=== PATIENT | male | born 1990 | race Two or more races ===

== ENCOUNTER → 2022-08-21 | Outpatient (CLI) | payer OTHER ==
[~2022-08-21] MED LIST: CRUTCH USE; HYDACE5 PO; INCARCERATION; SERT25
[2022-08-21 09:25] LABS: BASOPHILS ABSOLUTE AUTO 0.03 K/mm3 (0.00-0.23); BASOPHILS PERCENT AUTO 0 % (0-2); EOSINOPHILS PERCENT AUTO 1 % (0-6); Hematocrit 46.5 % (37.0-53.0); IMMATURE GRAN ABSOLUTE AUTO 0.03 K/mm3 (0.00-0.10); IMMATURE GRAN PERCENT AUTO 0 % (0-1); LYMPHOCYTES PERCENT AUTO 26 % (21-46); MONOCYTES ABSOLUTE AUTO 0.68 K/mm3 (0.16-1.47); MONOCYTES PERCENT AUTO 9 % (4-13); Mean Corpuscular HGB 30.4 pg (26.0-34.0); Mean Corpuscular HGB Conc 34.4 g/dL (31.5-36.5); Mean Corpuscular Volume 88 fL (80-100); Mean Platelet Volume 11.3 fL (9.1-12.4); NEUTROPHILS ABSOLUTE AUTO 4.77 K/mm3 (1.96-9.15); NEUTROPHILS PERCENT AUTO 63 % (41-73); Platelet Count 227 K/mm3 (150-400); RDW Coefficient Variation 11.9 % (11.7-14.2); RDW Standard Deviation 38.5 fL (35.1-46.3); Red Blood Cell Count 5.26 M/mm3 (4.30-5.90); White Blood Cell Count 7.61 K/mm3 (4.00-11.30)
[2022-08-21 09:39] LABS: Albumin/Globulin Ratio 1.1 (0.8-1.8); Bilirubin, Total 1.5 mg/dL (0.1-1.0); Bun/Creatinine Ratio 12.2 (12.0-20.0); Calcium, Blood 9.2 mg/dL (8.5-10.1); Creatinine, Blood 0.9 mg/dL (0.60-1.20); Globulin, Blood 3.7 g/dL (2.2-4.0); Potassium, Blood 4.4 mmol/L (3.5-5.5); Total Protein, Blood 7.7 g/dL (6.4-8.2)
== END | disposition home or self-care (01) ==
LOC: LAB SHORT 09:20 → LAB 09:20
PROVIDERS: Physician Assistant
DX: R10.9 Unspecified abdominal pain (principal)
CPT/HCPCS: 80053; 82150; 83690; 85025

== ENCOUNTER 2024-04-01 22:38 | Observation (INO) | payer BC, OTHER ==
[~2024-04-01] VITALS: Ht 190.5 cm; Wt 95.2 kg
[2024-04-01 23:28] VITALS: BP 160/104
[2024-04-02 00:06] LABS: BASOPHILS ABSOLUTE AUTO 0.06 K/mm3 (0.00-0.23); BASOPHILS PERCENT AUTO 1 % (0-2); EOSINOPHILS ABSOLUTE AUTO 0.08 K/mm3 (0.00-0.68); EOSINOPHILS PERCENT AUTO 1 % (0-6); Hematocrit 50.6 % (37.0-53.0); Hemoglobin 17.6 g/dL (13.5-17.5); IMMATURE GRAN ABSOLUTE AUTO 0.05 K/mm3 (0.00-0.10); IMMATURE GRAN PERCENT AUTO 0 % (0-1); LYMPHOCYTES ABSOLUTE AUTO 3.42 K/mm3 (0.84-5.20); LYMPHOCYTES PERCENT AUTO 29 % (21-46); MONOCYTES ABSOLUTE AUTO 0.89 K/mm3 (0.16-1.47); MONOCYTES PERCENT AUTO 8 % (4-13); Mean Corpuscular HGB 31.3 pg (26.0-34.0); Mean Corpuscular HGB Conc 34.8 g/dL (31.5-36.5); Mean Corpuscular Volume 90 fL (80-100); Mean Platelet Volume 10.5 fL (9.1-12.4); NEUTROPHILS ABSOLUTE AUTO 7.25 K/mm3 (1.96-9.15); NEUTROPHILS PERCENT AUTO 62 % (41-73); Platelet Count 323 K/mm3 (150-400); RDW Coefficient Variation 12.1 % (11.7-14.2); RDW Standard Deviation 39.9 fL (35.1-46.3); Red Blood Cell Count 5.62 M/mm3 (4.30-5.90); White Blood Cell Count 11.75 K/mm3 (4.00-11.30)
[2024-04-02 00:27] LABS: Salicylate <1.7 mg/dL (2.8-20.0)
[2024-04-02 00:30] LABS: Acetaminophen, Random <2.0 ug/mL (10.0-30.0); Alanine Aminotransfer (ALT/SGP 110 U/L (12-78); Albumin, Blood 3.9 g/dL (3.4-5.0); Albumin/Globulin Ratio 0.8 (0.8-1.8); Alk Phos 82 U/L (50-136); Anion Gap 12 mmol/L (3-11); Aspartate Aminotrans (AST/SGOT 72 U/L (12-37); Bilirubin, Total 1.2 mg/dL (0.1-1.0); Blood Urea Nitrogen 4 mg/dL (8-24); CO2, Blood 26 mmol/L (21-32); Calcium, Blood 8.9 mg/dL (8.5-10.1); Chloride, Blood 103 mmol/L (98-108); Globulin, Blood 4.6 g/dL (2.2-4.0); Glomerular Filtration Rate 121 (60-); Glucose, Blood 135 mg/dL (70-99); Potassium, Blood 3.5 mmol/L (3.5-5.5); Sodium, Blood 137 mmol/L (136-145); Total Protein, Blood 8.5 g/dL (6.4-8.2)
[2024-04-02 00:47] LABS: Source, Urine Clean Catch
[2024-04-02 00:49] LABS: Ethanol (Alcohol), Blood, Med 323 mg/dL
[2024-04-02 01:03] LABS: Bilirubin, Urine Neg (Neg); Blood, Urine Neg (Neg); Glucose Qualitative, Urine Neg (Neg); Ketones, Urine Neg (Neg); Leukocyte Esterase, Urine Neg (Neg); Nitrite, Urine Neg (Neg); Protein, Urine Neg (Neg); Urobilinogen, Urine NORM (Normal); pH, Urine 6.5 (5.0-8.0)
[2024-04-02 01:05] LABS: Appearance, Urine Clear (Clear); Color, Urine Yellow (P-Yellow)
[2024-04-02 01:18] LABS: U Amphetamine Screen Not Detected; U Barbituate Screen Not Detected; U Benzodiazapine Screen Not Detected; U Buprenorphine Screen Not Detected; U Cannabinoids Screen Not Detected; U Cocaine Screen Not Detected; U Methadone Screen Not Detected; U Methamphetamine Screen Not Detected; U Opiates Screen Not Detected; U Oxycodone Screen Not Detected; U Phencyclidine Screen Not Detected
== END 2024-04-02 10:37 | disposition home or self-care (01) ==
LOC: ER 22:38 → EOR 22:39
PROVIDERS: ADMIT Emergency Medicine
DX: F43.21 Adjustment disorder with depressed mood (principal); R45.851 Suicidal ideations; F10.129 Alcohol abuse with intoxication, unspecified; F32.A Depression, unspecified; F17.200 Nicotine dependence, unspecified, uncomplicated
CPT/HCPCS: 36415; 80053; 80320; 81003; 84484; 85025; 99285-25; G0378; G0480

== ENCOUNTER 2024-12-01 21:57 | Observation (INO) | payer OTHER ==
[~2024-12-01] VITALS: Ht 185.4 cm; Wt 99.8 kg
[2024-12-01] MEDS ORDERED: Naloxone HCl 0.4MG / ML 1ML Vial IV ONE (22:00)
[2024-12-01 22:13] LABS: BASOPHILS ABSOLUTE AUTO 0.04 K/mm3 (0.00-0.23); BASOPHILS PERCENT AUTO 0 % (0-2); EOSINOPHILS ABSOLUTE AUTO 0.01 K/mm3 (0.00-0.68); EOSINOPHILS PERCENT AUTO 0 % (0-6); Hematocrit 49.4 % (37.0-53.0); Hemoglobin 16.9 g/dL (13.5-17.5); IMMATURE GRAN ABSOLUTE AUTO 0.04 K/mm3 (0.00-0.10); IMMATURE GRAN PERCENT AUTO 0 % (0-1); LYMPHOCYTES ABSOLUTE AUTO 3.34 K/mm3 (0.84-5.20); LYMPHOCYTES PERCENT AUTO 24 % (21-46); MONOCYTES ABSOLUTE AUTO 0.83 K/mm3 (0.16-1.47); MONOCYTES PERCENT AUTO 6 % (4-13); Mean Corpuscular HGB Conc 34.2 g/dL (31.5-36.5); Mean Corpuscular Volume 87 fL (80-100); NEUTROPHILS ABSOLUTE AUTO 9.95 K/mm3 (1.96-9.15); NEUTROPHILS PERCENT AUTO 70 % (41-73); NRBC ABSOLUTE 0.00 K/mm3 (0.00-0.02); NRBC Auto 0.0 /100 WBC (0.0-0.2); Platelet Count 285 K/mm3 (150-400); RDW Coefficient Variation 12.5 % (11.7-14.2); RDW Standard Deviation 39.2 fL (35.1-46.3)
[2024-12-01 22:38] LABS: Ethanol (Alcohol), Blood, Med 300 mg/dL; Salicylate <1.7 mg/dL (2.8-20.0); Thyroid Stimulating Hormone 2.020 uIU/mL (0.360-4.800)
[2024-12-01 22:40] LABS: Acetaminophen, Random <2.0 ug/mL (10.0-30.0); Alanine Aminotransfer (ALT/SGP 64 U/L (12-78); Albumin, Blood 3.6 g/dL (3.4-5.0); Albumin/Globulin Ratio 0.8 (0.8-1.8); Anion Gap 10 mmol/L (3-11); Aspartate Aminotrans (AST/SGOT 35 U/L (12-37); Bilirubin, Total 1.4 mg/dL (0.1-1.0); Blood Urea Nitrogen 7 mg/dL (8-24); CO2, Blood 26 mmol/L (21-32); Calcium, Blood 8.2 mg/dL (8.5-10.1); Chloride, Blood 109 mmol/L (98-108); Creatinine, Blood 0.90 mg/dL (0.60-1.20); Globulin, Blood 4.3 g/dL (2.2-4.0); Glucose, Blood 129 mg/dL (70-99); Potassium, Blood 3.6 mmol/L (3.5-5.5); Sodium, Blood 141 mmol/L (136-145); Total Protein, Blood 7.9 g/dL (6.4-8.2)
[2024-12-01 23:49] LABS: U Amphetamine Screen Not Detected; U Barbituate Screen Not Detected; U Benzodiazapine Screen Not Detected; U Cocaine Screen Not Detected; U Methadone Screen Not Detected; U Methamphetamine Screen Not Detected
[2024-12-01 23:50] LABS: U Buprenorphine Screen Not Detected; U Cannabinoids Screen Not Detected; U Opiates Screen Not Detected; U Oxycodone Screen Not Detected; U Phencyclidine Screen Not Detected
[2024-12-02] MEDS ORDERED: NS 1,000 ML IV ONE (00:51)
[2024-12-02] MEDS ORDERED: NS 1,000 ML IV SCH (00:55)
[2024-12-02 01:06] LABS: Magnesium, Blood 2.1 mg/dL (1.6-2.4)
[2024-12-02 04:43] VITALS: BP 129/76
[2024-12-02] MEDS ORDERED: Ondansetron 8 MG SoluTab SL ONE (10:25)
== END 2024-12-02 16:27 | disposition other institution (70) ==
LOC: ER 21:57 → EOR 21:58
PROVIDERS: ADMIT Student in an Organized Health Care Education/Training Program
DX: T43.212A Poisoning by selective serotonin and norepinephrine reuptake inhibitors, intentional self-harm, initial encounter (principal); R40.4 Transient alteration of awareness; F32.A Depression, unspecified; F10.90 Alcohol use, unspecified, uncomplicated; F17.200 Nicotine dependence, unspecified, uncomplicated
CPT/HCPCS: 80053; 80320; 83735; 84439; 84443; 85025; 93005; 93010; 96374; 96375; 99285-25; A9270; G0378; G0480; J3480; J7030; J7050

== ENCOUNTER 2024-12-02 14:10 | Inpatient (IN) | payer OTHER ==
[~2024-12-02] VITALS: Ht 193 cm; Wt 95.4 kg
[2024-12-02] MEDS ORDERED: Haloperidol Lactate Inj. 5 MG/ML Injection IM PRN (15:50)
[2024-12-02] MEDS ORDERED: Aluminum Hydroxide 320MG/5ML 473 ML PO PRN (15:50)
[2024-12-02] MEDS ORDERED: Ondansetron 4 MG SoluTab MM PRN (15:55)
[2024-12-02] MEDS ORDERED: DiphenhydrAMINE HCl 50 MG/ML 1ML Vial IM PRN (15:55)
[2024-12-02] MEDS ORDERED: Polyethylene Glycol 3350 17 gm PO PRN (16:00)
[2024-12-02 16:40] VITALS: BP 152/113
[2024-12-02 17:04] VITALS: BP 152/113
--- NOTE | 2024-12-02 18:19 | NUR ---
ADMISSION NOTE/SHIFT SUMMARY PT ARRIVED TO [facility] FROM [facility] ED AT APPROX 1630. HE IS HER VOLUNTARILY AFTER DRINKING ALCOHOL AND TAKING "A MOUTHFUL OF TRAZODONE." HE REPORTED THIS WAS AN IMPULSIVE DECISION HE MADE AFTER EXPERIENCING A STRESSFUL BREAK UP WITH HIS FIANCE AND LEARNING OTHER TRIGGERING NEWS RELATED TO THEIR RELATIONSHIP. PT DENIES SI/HI AND AVTH AT THIS TIME, BUT HE DOES HAVE A HISTORY OF SUICIDAL BEHAVIOR x1, ALCOHOL ABUSE, AND MAJOR DEPRESSIVE DISORDER. PT IS VERY GOAL ORIENTED AND IS MOTIVATED TO STOP DRINKING. HE IS ASKING FOR RESOURCES TO GO TO INPATIENT TREATMENT FOR ALCOHOL ABUSE. HE REPORTS HAVING A GOOD SUPPORT SYSTEM WITH HIS FAMILY. PT WAS ORIENTED TO THE UNIT. HIS ADMISSION WAS COMPLETED AND HE IS CURRENTLY SITTING IN THE GROUP ROOM EATING DINNER. HE DENIES ANY NEEDS AT THIS TIME.
--- NOTE | 2024-12-02 18:50 | NUR ---
Patients sister Neeru called the [facility] and stated that the patient would like to go to [facility] upon discharge. She states he was supposed to have an intake or phone interview with them today, but then ended up here instead. She states that she is working to hopefully make that possible for post discharge. The patient is speaking with her on the phone at this time.
[2024-12-02 20:53] VITALS: BP 158/102
--- NOTE | 2024-12-03 04:21 | NUR ---
SHIFT SUMMARY PATIENT UP IN MILIEU, WATCHING TV WITH PEERS. DENIES SI, HI, OR AVH. CIWA 1 DUE TO SLIGHT ANXIETY, PATIENT VERBALIZED THAT HE HAS NEVER HAD ALCOHOL WITHDRAWALS IN THE PAST, AGREES TO ASK STAFF FOR ASSISTANCE IF FEELING OF WITHDRAWALS START, PLAN TO CONTINUE TO MONITOR CIWA Q4HR. WHILE SLEEPING CIWA 0. PATIENT VERBALIZED NAUSEA IS NOW GONE AND HE WAS ABLE TO EAT DINNER AND SNACK WITHOUT RETURN OF N/V. PATIENT VERBALIZED THAT HE IS HOPING TO BE ABLE TO GO HOME BY SUNDAY DUE TO HIS S/O IS BEING INDUCED TO GIVE THAT DAY. PATIENT ALSO VERBALIZED THAT HIS SISTER IS HELPING HIM TO GET INTO [facility] [place] FOR IN PATIENT REHAB. PATIENT APPEARS TO BE SLEEPING WELL T/O NIGHT RESP EVEN AND UNLABORED WITH SOME SNORING. CONTINUE TO MONITOR Q15MIN
[2024-12-03 08:48] LABS: CHOL/HDL RATIO 1.8; Cholesterol 154 mg/dL (50-200); HDL Cholesterol 85 mg/dL (>39); LDL/HDL RATIO 0.6; Low Density Lipoprotein Chol 50 mg/dL (0-110); Triglycerides 94 mg/dL (30-140); Very Low Density Lipoprot Chol 19 mg/dL (6-28)
[2024-12-03] MEDS ORDERED: Multivitamins 1 Tab PO SCH (09:00)
[2024-12-03] MEDS ORDERED: Folic Acid 1 MG TAB PO SCH (09:00)
[2024-12-03 09:07] VITALS: BP 152/95
--- NOTE | 2024-12-03 17:19 | NUR ---
SHIFT SUMMARY The patient is alert and orientated. He has clear speech and a disheveled (althought clean) appearence He denies any thought of wanting to hurt or kill himself. He is not experiencing hallucinations. His thought process appears to be logical and based in reality, although his past relationship is on his mind. He is on CIWA protocal and has scored low each assessment. He did have GI upset this am, and TUMS were effective to alleviate this. He had mild anxiety. Vistaril was given and was effective. He has participated in groups and has been polite with safe behavior on the unit. His drug and alcohol assessment was finished this shift. Patient did express that he'd like to be out of the unit by the time his ex is induced to have baby tomorrow, however this is not the plan. The patient is resing in bed at this time.
[2024-12-03 20:12] VITALS: BP 143/106
--- NOTE | 2024-12-04 04:22 | NUR ---
SHIFT SUMMARY PATIENT UP IN MILIEU VISITING WITH PEERS AND STAFF. VERBALIZED THAT HE IS FEELING "GOOD" AND CIWA 0. DENIES SI, HI, OR AVH. DENIES NEED FOR SLEEP AID TONIGHT. PATIENT APPEARS TO BE SLEEPING WELL T/O NIGHT, RESP EVEN AND UNLABORED. CONTINUE TO MONITOR Q15MIN
[2024-12-04 08:09] VITALS: BP 151/114
--- NOTE | 2024-12-04 10:26 | NUR ---
SHIFT ASSESSMENT: PT DENIED SI, HI, AVH, ANXIETY AND PHYSICAL PAIN. "I'M FEELING PRETTY CALM TODAY." HE DESCRIBED HIS MOOD , "PRETTY HAPPY...PRETTY GOOD." PT'S CWA WAS 0. HE IS PLEASANT AND COOPERATIVE WITH CARE. HE IS ACTIVE IN THE PT MILIEU.
--- NOTE | 2024-12-04 18:01 | NUR ---
SHIFT SUMMARY ASSUMED PT CARE @1130. NO CLINICAL CHANGES. HE DENIES SI, AVH. HE HAD A PLEASANT VISIT WITH DAD. CIWA DISCONTINUED PER DR. OCAMPO. SCORES CONSITANTLY AT 0. HE DENIES ANY NEEDS AT THIS TIME. HE HAS BEEN UP IN [place] INTERACTING WELL WITH PEERS AND STAFF
[2024-12-04 19:10] VITALS: BP 144/101
--- NOTE | 2024-12-05 04:52 | NUR ---
SHIFT SUMMARY: PATIENT WAS IN THE DAYROOM AT THE BEGINNING OF THE SHIFT, WATCHING TELEVISION. HE STATED, "I HAD A GOOD DAY. MY DAD CAME TO VISIT." HE DENIED SUICIDAL IDEATION, THOUGHTS OF SELF HARMING AND A/V/T HALLUCINATIONS. HE PARTICIPATED IN SNACK AND WRAP UP GROUP AT 2030 IN THE DINING AREA, AND HAD NO SCHEDULED EVENING MEDICATIONS, NOR DID HE WANT ANY PRN SLEEP MEDICATION. HE REMAINED UP AFTER SNACK AND WATCHED TELEVISION, THEN WENT TO BED, WHERE HE WAS NOTED TO BE RESTING QUIETLY WITH EYES CLOSED AND RESPIRATIONS CONFIRMED FOR THE REMAINDER OF THE SHIFT. CONTINUING TO MONITOR FOR SAFETY WITH Q15 MINUTE CHECKS.
[2024-12-05 07:41] VITALS: BP 136/101
--- NOTE | 2024-12-05 07:47 | NUR ---
SHIFT ASSESSMENT: PT WAS WATCHING A MOVIE WITH PEERS AT THE TIME OF THE ASSESSMENT. PT DENIED SI, HI, AVH, ANXIETY AND PHYSICAL PAIN. HE WAS PLEASANT AND COOPERATIVE WI CARE. HE DISCRIBED HIS MOOD , "GOOD!" AND HIS AFFECT WAS EUTHYMIC. PT RETURNED TO WATCH THE MOVIE AFTER THE ASSESSMENT.
--- NOTE | 2024-12-05 11:03 | NUR ---
IMPORTANT DISCHARGE INFORMATION PATIENT TO BE DISCHARGED TODAY. HIS FAMILY WILL BE HERE TO PICK HIM UP AROUND 1PM. ALL PARTIES VERBALIZE AN UNDERSTADING. MOTHER TONIA [phone]. FOLLOW UP WITH YOUR PCP ON 12/09/24 ATT 1:30PM, [facility]. FOLLOW UP WITH NEW MENTAL HEALTH PROVIDER: EDILSON SIM PMHNP ON 12/17/24 AT 1PM. [facility]. PHARMACY: [facility] FAX [phone] RESOURCES: [facility] AND TRANSPORT
[2024-12-05] MEDS ORDERED: SERT25 (12:14)
[2024-12-05] MEDS ORDERED: SERT25 PO (12:14)
--- NOTE | 2024-12-05 13:30 | NUR ---
DISCHARGE NOTE: 13:11 PT DISCHARGED TO HOME WITH ALL OF HIS BELONGINGS AND HIS PRINTED DISCHARGE INSTRUCTIONS. PT EXPRESSED READINESS FOR DISCHARGE AND WAS TALKING ABOUT HIS FUTURE...VERY GOAL ORIENTED. HE REPORTED THAT HE IS, "LOOKING FORWARD TO TREATMENT AND GETTING MY LIFE ON TRACK...I HAVE A GOOD FUTURE."
== END 2024-12-05 13:11 | disposition home or self-care (01) | DRG 881 ==
LOC: BHU 14:10
PROVIDERS: ADMIT Psychiatry & Neurology Psychiatry
DX: F43.21 Adjustment disorder with depressed mood (principal); F10.10 Alcohol abuse, uncomplicated; F17.210 Nicotine dependence, cigarettes, uncomplicated; Z79.899 Other long term (current) drug therapy; Z79.1 Long term (current) use of non-steroidal anti-inflammatories (NSAID); Z86.79 Personal history of other diseases of the circulatory system
CPT/HCPCS: 36415; 80061; 83036; A9270